=== PATIENT | female | born 1965 | race Caucasian/White ===

== ENCOUNTER 2017-05-13 06:00 | Day surgery (SDC) | payer BC ==
[2017-05-11 17:16] VITALS: BMI 30.1
[2017-05-13] MEDS ORDERED: PROPOFOL 20 ML ONE (07:31)
[2017-05-13] MEDS ORDERED: MIDAZOLAM HCL 2 MG/2 ML SINGLE DOSE VIAL ONE (07:31)
[2017-05-13] MEDS ORDERED: SUCCINYLCHOLINE CHLORIDE 200 MG/10 ML VIAL ONE (07:31)
[2017-05-13] MEDS ORDERED: LIDOCAINE HCL/PF 2% SDV 5ML VIAL ONE (07:33)
[2017-05-13] MEDS ORDERED: DEXAMETHASONE SOD PHOSPHATE 4 MG/1 ML VIAL ONE (07:55)
[2017-05-13] MEDS ORDERED: ONDANSETRON 4 MG/2 ML VIAL ONE (07:55)
[2017-05-13] MEDS ORDERED: ceFAZolin SODIUM 1 GM VIAL ONE (07:55)
[2017-05-13] MEDS ORDERED: KETOROLAC TROMETHAMINE 30 MG/1 ML VIAL ONE (08:21)
[2017-05-13] MEDS ORDERED: BACITRACIN 15 GM TUBE TOPICAL OINTMENT ONE (08:34)
[2017-05-13] MEDS ORDERED: oxyCODONE HCL 5 MG TABLET PO PRN ×2 (08:50)
[2017-05-13] MEDS ORDERED: ONDANSETRON 4 MG/2 ML VIAL IVPB PRN (08:50)
[2017-05-13] MEDS ORDERED: ONDANSETRON 4 MG/2 ML VIAL IVPUSH PRN (08:54)
--- NOTE | 2017-05-13 08:55 | OP ---
Operative Note - Note: Operative Date: 05/13/17 Pre-Operative Diagnosis: left axillar and right groin hidradenitis Operation: excision of right groin and left axillary hidradentis with closure of right groin and packing of left axilla Post-Operative Diagnosis: Same as Pre-op Surgeon: Juan Jose Pacheco Estimated Blood Loss (mls): 20 Operative Report Dictated: Yes
[2017-05-13] MEDS ORDERED: LACTATED RINGERS SOLUTION 1,000 ML IV SCH (09:00)
--- NOTE | 2017-05-13 09:22 | OP ---
DATE OF OPERATION: 05/13/2017 TITLE OF PROCEDURE: Excision of left axillary hidradenitis and separate excision of right groin axillary hidradenitis and primary closure. ATTENDING SURGEON: Andres Palmer MD ANESTHESIA: General endotracheal. PREOPERATIVE DIAGNOSIS: Left axillary and right groin hidradenitis. POSTOPERATIVE DIAGNOSIS: Left axillary and right groin hidradenitis. DESCRIPTION OF PROCEDURE: Patient is counseled on all risks, benefits, and alternatives to the procedure, understands, agrees to proceed. She is marked in the holding area, awake and aware of incisions and resulting scars. She is aware that there will be an open wound in the left axilla; the size of which was not able to be predicted preoperatively. Patient is brought to the operating room, placed in supine position, positioned and carefully checked by surgical and anesthesia teams after induction of general anesthesia. Patient was prepped and draped in standard surgical fashion. A timeout was called. Patient, procedure, site, and sides were verified. The right groin is addressed first. The palpable cystic lesion is marked. An elliptical incision is made surrounding this. The lesion is excised en bloc with subcutaneous fat sent to Pathology. Hemostasis is achieved with Bovie cautery. Closure is performed very loosely with 2 separate 4-0 nylon sutures, leaving wide areas for drainage. Gloves changed. All instruments were changed. Attention is then directed toward the left axilla. The area of open wound and drainage is marked for an excision several millimeters around the open wound. Incisions are made, and dissection is carried in the subcutaneous plane surrounding the wound. The entirety of the dissection is performed within healthy tissue. No active draining sinuses are encountered. The wound on the left axilla is excised in its entirety including subcutaneous fat. Hemostasis is meticulously achieved. The wound is copiously irrigated with normal saline. The residual wound in the left axilla is entirely healthy with no evidence of residual hidradenitis. It is dressed with bacitracin and Xeroform, saline gauze, dry gauze, and Hypafix tape. The patient's groin is dressed with bacitracin, Xeroform, gauze, and Hypafix tape. She is awoken from anesthesia, transferred to recovery without complication. ANDRES PALMER M.D. [id number]
[2017-05-13 10:03] VITALS: PULSE 92; TEMP 98.6
[2017-05-13 10:41] VITALS: BP 106/51
--- NOTE | 2017-05-18 10:28 | PATH ---
Surgical Pathology Report Patient Name: CHRISTIE HDZ [facility]. Rec. #: [id number] /Age/Gender: 1965 (Age: 52) / F Account: [id number] Location: [facility] AMBULATORY Taken: 05/13/2017 Received: 05/13/2017 Reported: 05/18/2017 Physicians: Juan Jose Pacheco Specimen(s) Received A: RIGHT GROIN HIDRADENITIS B: LEFT AXILLA HIDRADENITIS Clinical History Hidradenitis of right groin and left axilla Final Diagnosis A. SKIN, RIGHT GROIN, EXCISION: SKIN AND UNDERLYING SUBCUTANEOUS TISSUE WITH DENSE FIBROSIS AND CHRONIC INFLAMMATION CONSISTENT WITH HIDRADENITIS. B. SKIN, LEFT AXILLA, EXCISION: SKIN AND UNDERLYING SUBCUTANEOUS TISSUE WITH CONGESTION, CHRONIC INFLAMMATION, GIANT CELL REACTION, AND GRANULATION TISSUE CONSISTENT WITH HIDRADENITIS. Electronically Signed Sayra Rodriguez M.D. Gross Description A. Received in formalin labeled "right groin hidradenitis," is a 1.8 x 1.2 cm guerrero, elliptical, unoriented portion of skin excised to a depth of 0.6 cm. The epidermal surface is focally nodular. The base is inked blue and the specimen is serially sectioned. The specimen is entirely submitted in one cassette. B. Received in formalin labeled "left axilla hidradenitis," are 2 guerrero, irregular, unoriented portions of skin with underlying soft tissue, measuring 2.8 x 2.7 x 1.8 cm and 5.0 x 2.5 x 2.0 cm. The epidermal surfaces are focally ulcerated. The smaller portion of tissue is inked blue and the larger portion is inked green. [employer] In[employer] sections are submitted in 6 cassettes. DL/05/16/2017 saudi/05/16/2017
== END 2017-05-13 11:05 | disposition home or self-care (01) ==
LOC: FASU 06:00
PROVIDERS: ATTEND Plastic Surgery
PROC: 0JBD0ZZ Excision of Right Upper Arm Subcutaneous Tissue and Fascia, Open Approach (ICD-10-PCS; 2017-05-13)
PROC: 0JBF0ZZ Excision of Left Upper Arm Subcutaneous Tissue and Fascia, Open Approach (ICD-10-PCS; principal; 2017-05-13 07:30)
DX: L73.2 Hidradenitis suppurativa (principal)
CPT/HCPCS: 88304-TC; 94760